=== PATIENT | male | born 1945 | race Caucasian/White ===

== ENCOUNTER → 2019-10-14 | Outpatient (CLI) | payer MEDICARE ==
[2019-10-14 11:14] LABS: Basophils % (A) 1 %; Eosinophils % (A) 1 %; HCT 43.4 % (39.0-53.0); HGB 14.4 gm/dL (13.0-17.5); Lymphocytes # (A) 1.3 k/uL (1.0-4.8); Lymphocytes % (A) 28 %; MCH 30.4 pg (25.0-35.0); MCHC 33.2 g/dL (31.0-37.0); MCV 91.8 fL (80.0-100.0); Mean Platelet Volume 7.6; Monocytes # (A) 0.4 k/uL (0-1.0); Monocytes % (A) 9 %; Neutrophils # (A) 2.8 k/uL (1.3-7.7); Neutrophils % (A) 59 %; Platelet Count 171 k/uL (150-450); RBC 4.73 m/uL (4.30-5.90); RDW 12.8 % (11.5-15.5); WBC 4.7 k/uL (3.8-10.6)
[2019-10-14 17:35] LABS: African American GFR (CKD) 75.2 (60.0-200.0); Albumin 4.2 g/dL (3.80-4.90); Albumin/Globulin Ratio 1.75 (1.60-3.17); Anion Gap 8.5 mmol/L (4.00-12.00); BUN/Creat Ratio 14.55 Ratio (12.00-20.00); Calcium 9.5 mg/dL (8.7-10.3); Carbon Dioxide 27.5 mmol/L (21.6-31.8); Chol/HDL Ratio 3.35; Globulin 2.4 g/dL (1.6-3.3); LDL Cholesterol,Calculated 131.4 mg/dL (0.0-131.0); Non-African American GFR(CKD) 64.9 (60.0-200.0); Potassium 4.2 mmol/L (3.5-5.5); Total Bilirubin 0.8 mg/dL (0.3-1.2); Total Protein 6.6 g/dL (6.2-8.2); VLDL Calculation 14.6 mg/dL (5.00-40.00)
== END | disposition home or self-care (01) ==
LOC: LABWHC1 10:39
PROVIDERS: ATTEND Internal Medicine
DX: E78.5 Hyperlipidemia, unspecified (principal); E03.9 Hypothyroidism, unspecified; K21.9 Gastro-esophageal reflux disease without esophagitis; E55.9 Vitamin D deficiency, unspecified; E87.8 Other disorders of electrolyte and fluid balance, not elsewhere classified; N40.0 Benign prostatic hyperplasia without lower urinary tract symptoms; D64.9 Anemia, unspecified
CPT/HCPCS: 36415; 80053; 80061; 82306; 84153; 84443; 85025

== ENCOUNTER → 2024-03-17 | Outpatient (CLI) | payer MEDICARE ==
--- NOTE | 2024-03-17 15:06 | XR ---
EXAMINATION TYPE: XR chest 2V DATE OF EXAM: 03/17/2024 12:48 PM CLINICAL INDICATION:Male, 78 years old with history of SOB; [facility] COMPARISON: None TECHNIQUE: XR chest 2V Frontal and lateral views of the chest. FINDINGS: Lungs/Pleura: . Prominent interstitial lung markings are seen scattered throughout the lungs with fla ttening of the diaphragm and increased lucency of the lung apices. No evidence of focal consolidation , pneumothorax or pleural effusion. Pulmonary vascularity: Unremarkable. Heart/mediastinum: Cardiomediastinal silhouette is unremarkable. Musculoskeletal: No acute osseous pathology. IMPRESSION: 1. No definitive evidence for CHF 2. Interstitial lung prominence. 3. COPD.
--- NOTE | 2024-03-18 10:21 | US ---
EXAMINATION TYPE: US abdomen complete DATE OF EXAM: 03/17/2024 COMPARISON: NONE CLINICAL INDICATION: Male, 78 years old with history of R10.84 GENERALIZED ABDOMINAL PAIN; enlarged l iver/spleen TECHNIQUE: Multiple sonographic images of the abdomen are obtained. FINDINGS: EXAM MEASUREMENTS: Liver Length: 13.9 cm Gallbladder Wall: 0.1 cm CBD: 0.6 cm Spleen: obscured by bowel gas Right Kidney: 7.9x3.6x4.2 cm Left Kidney: 10.4x5.6x4.6 cm ENVIRONMENTAL REMEDIATION SPECIALIST NOTES: Pancreas: mostly obscured by bowel gas Liver: wnl as best visualized Gallbladder: wnl Evidence for sonographic Brown's sign: No CBD: upper limits Spleen: obscured by bowel gas and reverberation artifact from lungs Right Kidney: No hydronephrosis or masses seen Left Kidney: No hydronephrosis or masses seen Upper IVC: wnl Abd Aorta: wnl at visualized portions, mild atherosclerotic plaque exam very limited by overlying bowel gas and tight rib spaces IMPRESSION: 1. Limited examination due to available ultrasound windows. Spleen cannot be evaluated on this exam.
== END | disposition home or self-care (01) ==
LOC: RADUSWWP 12:01
PROVIDERS: ATTEND Internal Medicine
DX: J44.9 Chronic obstructive pulmonary disease, unspecified (principal); J84.9 Interstitial pulmonary disease, unspecified; N42.9 Disorder of prostate, unspecified; R16.2 Hepatomegaly with splenomegaly, not elsewhere classified; R10.84 Generalized abdominal pain; I50.9 Heart failure, unspecified; E78.5 Hyperlipidemia, unspecified; E11.65 Type 2 diabetes mellitus with hyperglycemia; R80.9 Proteinuria, unspecified
CPT/HCPCS: 71046; 76700

== ENCOUNTER → 2024-03-18 | Outpatient (CLI) | payer MEDICARE ==
[2024-03-18 13:29] LABS: Basophils # (A) 0.03 X 10*3/uL (0.00-0.10); Basophils % (A) 0.5 %; Eosinophils # (A) 0.07 X 10*3/uL (0.04-0.35); Eosinophils % (A) 1.2 %; HCT 41.3 % (39.6-50.0); HGB 13.7 g/dL (13.0-17.0); Lymphocytes % (A) 17.3 %; MCH 30.1 pg (27.0-32.0); MCHC 33.2 g/dL (32.0-37.0); MCV 90.8 FL (80.0-97.0); Mean Platelet Volume 10.3 FL (9.5-12.2); Monocytes # (A) 0.71 X 10*3/uL (0.20-1.00); Monocytes % (A) 12.3 %; NRBC Per 100 WBC 0 X 10*3/uL (0.00-0.01); Neutrophils # (A) 3.97 X 10*3/uL (1.80-7.70); Neutrophils % (A) 68.5 %; Platelet Count 202 X 10*3/uL (140-440); RBC 4.55 X 10*6/uL (4.40-5.60); RDW 13.4 % (11.5-14.5); WBC 5.79 X 10*3/uL (4.50-10.00)
[2024-03-18 13:34] LABS: NT-Pro-B-Type Natriuretic Pept 99 pg/mL (0-450)
[2024-03-18 13:41] LABS: Thyroid Peroxidase Antibodies <9.0 U/mL (0.0-33.0)
[2024-03-18 13:42] LABS: Erythrocyte Sedimentation Rate 36 mm/Hr (0-20)
[2024-03-18 13:50] LABS: ALT 23 U/L (10-49); AST 22 U/L (14-35); Albumin 4.4 g/dL (3.8-4.9); Albumin/Globulin Ratio 1.69 Ratio (1.60-3.17); Alkaline Phosphatase 70 U/L (41-126); Blood Urea Nitrogen 20.8 mg/dL (9.0-27.0); C Reactive Protein <0.30 mg/dL (0.00-0.80); Calcium 9.7 mg/dL (8.7-10.3); Carbon Dioxide 23.8 mmol/L (21.6-31.8); Chloride 102 mmol/L (96-109); Chol/HDL Ratio 3.57 Ratio; Creatine Kinase 129 U/L (35-257); Globulin 2.6 g/dL (1.6-3.3); Glucose 105 mg/dL (70-110); LDL Cholesterol,Calculated 174.2 mg/dL (0.0-131.0); Magnesium 2.1 mg/dL (1.5-2.4); Phosphorus 3.7 mg/dL (2.4-5.1); Potassium 4.4 mmol/L (3.5-5.5); Sodium 139 mmol/L (135-145); T4, Free (Free Thyroxine) 1.49 ng/dL (0.80-1.80); Total Bilirubin 0.4 mg/dL (0.3-1.2); Uric Acid 3.9 mg/dL (3.7-8.7); VLDL Calculation 13.74 mg/dL (5.00-40.00)
== END | disposition home or self-care (01) ==
LOC: LABWHC1 09:50
PROVIDERS: ATTEND Internal Medicine
DX: I50.9 Heart failure, unspecified (principal); E11.65 Type 2 diabetes mellitus with hyperglycemia; E78.5 Hyperlipidemia, unspecified; R80.9 Proteinuria, unspecified
CPT/HCPCS: 36415; 80053; 80061; 82550; 83036; 83735; 83880; 83970; 84100; 84439; 84443; 84550; 85025; 85652; 86140; 86376; 86800

== ENCOUNTER → 2024-08-22 | Outpatient (CLI) | payer MEDICARE | END | disposition home or self-care (01) | LOC: LABWHC1 10:47 | PROVIDERS: ATTEND Internal Medicine Interventional Cardiology | DX: R06.09 Other forms of dyspnea (principal) | CPT/HCPCS: 36415; 83880 ==

== ENCOUNTER → 2024-10-31 | Outpatient (CLI) | payer MEDICARE ==
[2024-10-31 15:50] LABS: Chol/HDL Ratio 3.08 Ratio; LDL Cholesterol,Calculated 139.2 mg/dL (0.0-131.0); VLDL Calculation 11.44 mg/dL (5.00-40.00)
[2024-10-31 15:52] LABS: Basophils # (A) 0.03 X 10*3/uL (0.00-0.10); Basophils % (A) 0.6 %; Eosinophils # (A) 0.02 X 10*3/uL (0.04-0.35); Eosinophils % (A) 0.4 %; HCT 40.1 % (39.6-50.0); HGB 13.5 g/dL (13.0-17.0); Lymphocytes # (A) 1.13 X 10*3/uL (0.90-5.00); Lymphocytes % (A) 21.7 %; MCH 29.7 pg (27.0-32.0); MCHC 33.7 g/dL (32.0-37.0); MCV 88.3 FL (80.0-97.0); Mean Platelet Volume 10.1 FL (9.5-12.2); Monocytes # (A) 0.82 X 10*3/uL (0.20-1.00); Monocytes % (A) 15.8 %; NRBC Per 100 WBC 0 X 10*3/uL (0.00-0.01); Neutrophils # (A) 3.19 X 10*3/uL (1.80-7.70); Neutrophils % (A) 61.3 %; Platelet Count 174 X 10*3/uL (140-440); RBC 4.54 X 10*6/uL (4.40-5.60); RDW 13.1 % (11.5-14.5)
== END | disposition home or self-care (01) ==
LOC: LABWHC1 11:40
PROVIDERS: ATTEND Internal Medicine
DX: E78.5 Hyperlipidemia, unspecified (principal); D64.9 Anemia, unspecified; R73.9 Hyperglycemia, unspecified
CPT/HCPCS: 36415; 80061; 83036; 85025